=== PATIENT | male | born 1990 | race Two or more races ===

== ENCOUNTER 2019-05-07 20:57 | Emergency (ER) | payer OTHER ==
[~2019-05-07] VITALS: Ht 167.6 cm; Wt 56.7 kg
[2019-05-07] MEDS ORDERED: LIDOCAINE 1% 5ML-MPF INJ ONE (22:00)
--- NOTE | 2019-05-07 23:12 | Diagnostic Imaging Report ---
FINGER RT - HOPD - 3 views HISTORY: Pain COMPARISON: None available. FINDINGS: Bones: No acute displaced fracture. Osseous alignment is within normal limits. Joints: The joint spaces are well-maintained. Soft tissues: Soft tissue defect of the tip of the fourth digit. IMPRESSION: No acute osseous abnormality. Signed by: Dr. Jurgen Hernandez MD on 05/07/2019 11:08 PM
[2019-05-07] MEDS ORDERED: LIDOCAINE HCL 1% LOCAL INJ 20 ML VIAL ONE (23:26)
[2019-05-07] MEDS ORDERED: NEOMYCIN/POLYMYX/BACITR OINT 0.9 GM PKT ONE (23:39)
[2019-05-08 02:35] VITALS: BP 127/64
--- OUTSIDE RECORDS SUMMARY | 2019-05-11 13:00 | XMS REPORT ---
Author Author [facility] Address Unknown Phone Unavailable Care Team Providers Care Sales Force Developer Name Role Phone LEVINE GISELLE Unavailable Unavailable Problems This patient has no known problems. Allergies, Adverse Reactions, Alerts This patient has no known allergies or adverse reactions. Medications This patient has no known medications. Results Test Description Test Time Test Comments Text Results Atomic Results Result Comments FINGER RT - HOPD 2019-05-07 23:07:00 [place] [address] Patient Name: DANIEL INIGUEZ MR #: [id number] : 1990 Age/Sex: 28/M Req #: [id number] [facility] Physician: Ordered by: GISELLE LEVINE DO Report #: [id number] Location: [facility] Room/Bed: Procedure: [id number] HOPD/FINGER RT - [facility] Exam Date: 05/07/19 Exam Time: 5 REPORT STATUS: Signed FINGER RT - HOPD - 3 views HISTORY: Pain COMPARISON: None available. FINDINGS: Bones: No acute displaced fracture. Osseous alignment is within normal limits. Joints: The joint spaces are well-maintained. Soft tissues: Soft tissue defect of the tip of the fourth digit. IMPRESSION: No acute osseous abnormality. Signed by: Dr. Jurgen Moya MD on 05/07/2019 11:08 PM Dictated By: JURGEN MEYER MD 07 Transcribed By: MICHAEL on 05/07/192307 COPY TO: GISELLE LEVINE DO
== END 2019-05-07 23:50 | disposition home or self-care (01) ==
LOC: FSED 20:57
DX: S61.214A Laceration without foreign body of right ring finger without damage to nail, initial encounter (principal); W23.1XXA Caught, crushed, jammed, or pinched between stationary objects, initial encounter; Y92.814 Boat as the place of occurrence of the external cause; Y99.0 Civilian activity done for income or pay
CPT/HCPCS: 64450; 73140; 99283; J2001